=== PATIENT | male | born 1980 | race Two or more races ===

== ENCOUNTER 2021-09-07 19:43 | Emergency (ER) | payer OTHER ==
[2021-09-07 19:53] VITALS: BP 104/72; PULSE 88; TEMP 97; BMI 28.1
== END 2021-09-07 20:22 | disposition home or self-care (01) ==
LOC: JERFT 19:43
DX: L73.2 Hidradenitis suppurativa (principal)
CPT/HCPCS: 99283-25

== ENCOUNTER 2021-11-17 20:50 | Emergency (ER) | payer OTHER ==
[2021-11-17 21:17] VITALS: BP 136/86; PULSE 87; TEMP 97.9; BMI 29.7
== END 2021-11-17 23:03 | disposition home or self-care (01) ==
LOC: JER 20:50
DX: Z20.822 Contact with and (suspected) exposure to COVID-19 (principal)
CPT/HCPCS: 99283-25; C9803; Q3014-GT; U0003; U0005

== ENCOUNTER 2021-11-26 07:34 | Emergency (ER) | payer OTHER ==
[2021-11-26 07:56] VITALS: TEMP 98.9; BMI 29.0
[2021-11-26] MEDS ORDERED: FAMOTIDINE 20 MG/50 ML IVPB 20 MG/50 ML MG IVPB ONE ×2 (07:59→08:05)
[2021-11-26] MEDS ORDERED: SODIUM CHLORIDE 0.9% 500 ML INFUS.BAG IV ONE (07:59)
[2021-11-26] MEDS ORDERED: ACETAMINOPHEN 1000 MG/100 ML BAG IVPB ONE (07:59)
[2021-11-26] MEDS ORDERED: ACETAMINOPHEN INJECTION 100 ML IVPB ONE (08:05)
[2021-11-26 09:06] LABS: BASO % 0.6 % (0-2.0); EOS % 2.2 % (0-4.5); HEMOGLOBIN 14.2 GM/dL (11.7-16.9); MCH 30.4 pg (25.7-33.7); MCHC 33.9 g/dl (32.0-35.9); MEAN CELL VOLUME 89.6 fl (80-96); MEAN PLT VOLUME 6.8 fl (7.5-11.1); MONO % 12.8 % (3.8-10.2); NEUT % 45.4 % (42.8-82.8); PLATELET COUNT 195 10^3/uL (134-434); RBC 4.68 M/mm3 (4.00-5.60); RDW 14.5 % (11.9-15.9); WHITE BLOOD COUNT 4.7 K/mm3 (4.0-10.0)
[2021-11-26 09:30] LABS: CHLORIDE 104 mmol/L (98-107); SODIUM 137 mmol/L (136-145)
[2021-11-26 09:33] LABS: ALBUMIN 3.9 g/dl (3.4-5.0); ANION GAP 7 MMOL/L (8-16); BLOOD UREA NITROGEN 19.8 mg/dL (7-18); CALCIUM 9.7 mg/dL (8.5-10.1); CO2 26 mmol/L (21-32); GLUCOSE,RANDOM 96 mg/dL (74-106); LIPASE 132 U/L (73-393)
[2021-11-26 09:36] LABS: CREATININE 0.9 mg/dL (0.55-1.3); SGOT/AST 39 U/L (15-37); SGPT/ALT 41 U/L (13-61)
[2021-11-26 09:37] LABS: BILIRUBIN,TOTAL 0.6 mg/dL (0.2-1)
[2021-11-26 09:38] LABS: TOT PROT 7.4 g/dl (6.4-8.2)
[2021-11-26 09:39] LABS: ALK PHOS 67 U/L (45-117)
[2021-11-26 11:29] VITALS: BP 115/66; PULSE 70
== END 2021-11-26 11:33 | disposition left against medical advice (07) ==
LOC: JER 07:34
PROC: 3E0333Z Introduction of Anti-inflammatory into Peripheral Vein, Percutaneous Approach (ICD-10-PCS; principal; 2021-11-26)
PROC: 3E033GC Introduction of Other Therapeutic Substance into Peripheral Vein, Percutaneous Approach (ICD-10-PCS; 2021-11-26)
DX: R07.9 Chest pain, unspecified (principal)
CPT/HCPCS: 36415; 71045-TC-FY; 80053; 82550; 82553; 82728; 83605; 83690; 84484; 85025; 85379; 86140; 87804; 93005; 93010; 96374; 96375; 99285-25; C9803; J0131; U0003; U0005

== ENCOUNTER 2022-04-15 02:26 | Emergency (ER) | payer SELFPAY ==
[2022-04-15 02:58] VITALS: BP 139/86; PULSE 92; TEMP 98.8; BMI 28.2
== END 2022-04-15 04:03 | disposition left against medical advice (07) ==
LOC: JER 02:26
DX: R41.0 Disorientation, unspecified (principal)
CPT/HCPCS: 99281-25